=== PATIENT | male | born 1965 | race American Indian/Alaskan Native ===

== ENCOUNTER 2019-04-30 11:36 | Emergency (ER) | payer MEDICARE ==
[2019-04-30 11:47] VITALS: BP 139/104
--- NOTE | 2019-04-30 11:48 | Emergency Department Report ---
Blank Doc - Documentation Documentation: 53 Y/O MALE WITH CERBAL PALSY WAS AMUBLATING WITHOUT WALKER AND LOST BALANCE F ALLING AND HITTING HEAD ON WALL. LACERATION PRESENT. REPORTS NO LOC PLAN CT AND LACERATION REPAIR.
--- NOTE | 2019-04-30 14:07 | XRay Report ---
Right ankle 3 views: History: Pain and swelling after fall. Findings: There is cortical thickening or periosteal thickening noted at the interosseous membrane surface of the distal tibia proximal to the joint. No acute fracture or dislocation. Impression: Findings probably related to old injury.
--- NOTE | 2019-04-30 14:29 | Cat Scan Report ---
PROCEDURE: CT HEAD/BRAIN WO CON TECHNIQUE: A noncontrast CT of the head was performed. HISTORY: headache COMPARISON: None FINDINGS: There is no acute intracranial hemorrhage. There is no brain edema, mass effect or midline shift. Ventricular size is appropriate for brain volume. There is no abnormal extra-axial fluid collections. There is no skull fracture seen. There is opacification of all visualized paranasal sinuses. This is concerning for pansinusitis. IMPRESSION: Diffuse sinus opacification concerning for pansinusitis. Otherwise no acute intracranial abnormality. This document is electronically signed by Magali Valentin MD., April 30 2019 02:27:44 PM ET
--- NOTE | 2019-04-30 14:41 | Emergency Department Report ---
ED General Adult HPI - General Chief complaint: Head Injury Stated complaint: FELL AND HIT HEAD Time Seen by Provider: 04/30/19 11:45 Source: patient, family Mode of arrival: Ambulatory Limitations: No Limitations - History of Present Illness Initial comments: Patient is a 53-year-old gentleman who has a history of cerebral palsy who is presenting status post a fall. Patient states that there was a leak of a water heater in the home. Patient was trying last night to get the water up and he lost his balance and fell. Patient hit the top of his head on the wall as he was falling to the ground. Patient also has some injury to the right ankle as well swelling. Patient states pain is achy in nature as a 5 out of 10 in severity. Patient denies loss of consciousness. Patient denies any nausea vomiting or neck pain at this time. - Related Data Previous Rx's Medication Instructions Recorded Last Taken Type Ketorolac [Toradol] 10 mg PO Q6H PRN #12 tablet 04/30/19 Unknown Rx Allergies Allergy/AdvReac Type Severity Reaction Status Date / Time No Known Allergies Allergy Verified 04/30/19 11:41 ED Review of Systems ROS: Stated complaint: FELL AND HIT HEAD Other details as noted in HPI Comment: All other systems reviewed and negative ED Past Medical Hx - Past Medical History Previous Medical History?: Yes Hx Hypertension: Yes Hx Asthma: Yes Additional medical history: Cerebral Palsy - Surgical History Past Surgical History?: Yes Additional Surgical History: neck surgery - Social History Smoking Status: Never Smoker Substance Use Type: None - Medications Home Medications: Home Medications Medication Instructions Recorded Confirmed Last Taken Type Ketorolac [Toradol] 10 mg PO Q6H PRN #12 tablet 04/30/19 Unknown Rx ED Physical Exam - General Limitations: No Limitations General appearance: alert, in no apparent distress - Head Head exam: Present: normocephalic. Absent: atraumatic (patient with a 3 cm laceration on his scalp) - Eye Eye exam: Present: normal appearance, PERRL, EOMI - ENT ENT exam: Present: mucous membranes moist - Neck Neck exam: Present: normal inspection - Respiratory Respiratory exam: Present: normal lung sounds bilaterally. Absent: respiratory distress, wheezes, rales, rhonchi - Cardiovascular Cardiovascular Exam: Present: regular rate, normal rhythm. Absent: systolic murmur, diastolic murmur, rubs, gallop - GI/Abdominal GI/Abdominal exam: Present: soft, normal bowel sounds. Absent: distended - Rectal Rectal exam: Present: deferred - Extremities Exam Extremities exam: Present: normal inspection - Expanded Lower Extremity Exam Right Ankle exam: Present: tenderness, swelling (at the lateral malleolus). Absent: laceration, ecchymosis, deformity, crepidus, dislocation, erythema - Back Exam Back exam: Present: normal inspection - Neurological Exam Neurological exam: Present: alert, oriented X3 - Psychiatric Psychiatric exam: Present: normal affect, normal mood - Skin Skin exam: Present: warm, dry, intact, normal color. Absent: rash ED Course Vital Signs 04/30/19 11:44 Temperature 98.7 F Pulse Rate 89 Respiratory 16 Rate Blood Pressure 139/104 [Left] O2 Sat by Pulse 97 Oximetry - Laceration /Wound Repair Head Wound Location: head Wound Length (cm): 3 Wound's Depth, Shape: superficial, linear Wound Explored: clean Irrigated w/ Saline (ccs): 200 Betadine Prep?: Yes Anesthesia: 1% Lidocaine Volume Anesthetic (ccs): 8 Number of Sutures: 6 (katherine) ED Medical Decision Making - Radiology Data [facility] [address] [place] [address] Cat Scan Report Signed Patient: KAEL ACEVES MR#: [id number] : 1965 Acct:[id number] Age/Sex: 53 / M ADM Date: 04/30/19 Loc: ED Attending Dr: Ordering Physician: FEDE NGUYEN Date of Service: 04/30/19 Procedure(s): CT head/brain wo con Accession Number(s): [id number] cc: FEDE NGUYEN PROCEDURE: CT HEAD/BRAIN WO CON TECHNIQUE: A noncontrast CT of the head was performed. HISTORY: headache COMPARISON: None FINDINGS: There is no acute intracranial hemorrhage. There is no brain edema, mass effect or midline shift. Ventricular size is appropriate for brain volume. There is no abnormal extra-axial fluid collections. There is no skull fracture seen. There is opacification of all visualized paranasal sinuses. This is concerning for pansinusitis. IMPRESSION: Diffuse sinus opacification concerning for pansinusitis. Otherwise no acute intracranial abnormality. This document is electronically signed by Magali Valentin MD., April 30 2019 02:27:44 PM ET Transcribed By: JESSICA Dictated By: MAGALI VALENTIN MD Electronically Authenticated By: MAGALI VALENTIN MD Signed Date/Time: 04/30/19 1429 DD/ 1341 TD/TT: 04/30/19 1341 X-ray of the right ankle shows no acute process. There is evidence of previous injury. - Medical Decision Making Patient is a 53-year-old gentleman who slipped and fell at home. Patient suffered a laceration to the top of his head. This injury. By me. Patient also suffered a right-sided ankle sprain. There is minimal swelling. Patient placed in ankle stirrups and will be discharged home with follow-up with or without as needed. Patient is being given instructions on laceration care and the patient will have the katherine removed in one week. Critical care attestation.: If time is entered above; I have spent that time in minutes in the direct care of this critically ill patient, excluding procedure time. ED Disposition Clinical Impression: Closed head injury Qualifiers: Encounter type: initial encounter Qualified Code(s): S09.90XA - Unspecified injury of head, initial encounter Scalp laceration Qualifiers: Encounter type: initial encounter Qualified Code(s): S01.01XA - Laceration without foreign body of scalp, initial encounter Ankle sprain Qualifiers: Encounter type: initial encounter Involved ligament of ankle: unspecified liga ment Laterality: right Qualified Code(s): S93.401A - Sprain of unspecified ligament of right ankle, initial encounter Disposition: -01 TO HOME OR SELFCARE Is pt being admited?: No Does the pt Need Aspirin: No Condition: Stable Instructions: Laceration (ED), Minor Head Injury (ED), Ankle Sprain (ED), Ankle Stirrup Splint (ED) Additional Instructions: Your katherine will need to be removed in one week Referrals: BLAYNE ASHBY MD [Primary Care Provider] - 7-10 days Time of Disposition: 14:43
== END 2019-04-30 15:05 | disposition home or self-care (01) ==
LOC: ED 11:36
DX: S01.01XA Laceration without foreign body of scalp, initial encounter (principal); S93.401A Sprain of unspecified ligament of right ankle, initial encounter; I10 Essential (primary) hypertension; J45.909 Unspecified asthma, uncomplicated; G51.0 Bell's palsy; W18.30XA Fall on same level, unspecified, initial encounter; Y93.89 Activity, other specified; Y92.098 Other place in other non-institutional residence as the place of occurrence of the external cause; Y99.8 Other external cause status
CPT/HCPCS: 70450

== ENCOUNTER 2019-05-09 15:44 | Emergency (ER) | payer MEDICARE ==
--- NOTE | 2019-05-09 15:57 | Emergency Department Report ---
Suture/Staple Removal - HPI Chief Complaint: Laceration/Recheck/Suture Stated Complaint: SUTURE REMOVAL When Sutures or [place] Placed: 8-10 Days Ago ED Review of Systems ROS: Stated complaint: SUTURE REMOVAL Other details as noted in HPI Comment: All other systems reviewed and negative ED Past Medical Hx - Past Medical History Previous Medical History?: Yes Hx Hypertension: Yes Hx Asthma: Yes Additional medical history: Cerebral Palsy - Surgical History Past Surgical History?: Yes Additional Surgical History: neck surgery - Family History Family history: no significant - Social History Smoking Status: Never Smoker Substance Use Type: None - Medications Home Medications: Home Medications Medication Instructions Recorded Confirmed Last Taken Type Ketorolac [Toradol] 10 mg PO Q6H PRN #12 tablet 04/30/19 Unknown Rx Suture Removal Exam - Exam General: Vital signs noted. No distress. Alert and acting appropriately. Wound: No Pathologic Erythema, No Tenderness, No Drainage, No Pus, No Wound Dehiscence Other Systems: All other systems reviewed and are unremarkable. ED Recheck MDM - Core Measures Measure Exclusions: not indicated - Differential Diagnosis Suture/Staple Removal - Medical Decision Making sutures removed without difficulty dc home with family VSS no infection Critical care attestation.: If time is entered above; I have spent that time in minutes in the direct care of this critically ill patient, excluding procedure time. ED Disposition Clinical Impression: Visit for suture removal Disposition: DC01 TO HOME OR SELFCARE Is pt being admited?: No Does the pt Need Aspirin: No Condition: Stable Instructions: Suture Removal (ED) Time of Disposition: 16:01
== END 2019-05-09 16:59 | disposition home or self-care (01) ==
LOC: ED 15:44
DX: S01.91XD Laceration without foreign body of unspecified part of head, subsequent encounter (principal); X58.XXXD Exposure to other specified factors, subsequent encounter